=== PATIENT | male | born 2000 | race Two or more races ===

== ENCOUNTER 2023-04-19 13:46 | Emergency (ER) | payer OTHER ==
[2023-04-19 14:02] VITALS: TEMP 98.9; BMI 28.7
[2023-04-19] MEDS ORDERED: SODIUM CHLORIDE 0.9% 500 ML INFUS.BAG IV ONE (15:04)
[2023-04-19 15:49] VITALS: BP 112/64; PULSE 69; RESP 19
[2023-04-19 15:52] LABS: BASO % 0.5 % (0-2.0); EOS % 2.2 % (0-4.5); HEMATOCRIT 47.3 % (35.4-49); HEMOGLOBIN 15.4 GM/dL (11.7-16.9); LYMPH % 12.5 % (8-40); MCH 29.2 pg (25.7-33.7); MCHC 32.7 g/dl (32.0-35.9); MEAN CELL VOLUME 89.4 fl (80-96); MEAN PLT VOLUME 10.7 fl (7.5-11.1); MONO % 13.5 % (3.8-10.2); NEUT % 71.3 % (42.8-82.8); PLATELET COUNT 152 10^3/uL (134-434); RBC 5.29 M/mm3 (4.00-5.60); RDW 14.1 % (11.9-15.9); WHITE BLOOD COUNT 6.5 K/mm3 (4.0-10.0)
[2023-04-19 15:59] LABS: POTASSIUM 4.5 mmol/L (3.5-5.1)
[2023-04-19 16:02] LABS: ALBUMIN 4.1 g/dl (3.4-5.0); BLOOD UREA NITROGEN 13.6 mg/dL (7-18)
[2023-04-19 16:06] LABS: BILIRUBIN,TOTAL 0.4 mg/dL (0.2-1); TOT PROT 7.7 g/dl (6.4-8.2)
== END 2023-04-19 18:04 | disposition home or self-care (01) ==
LOC: JER 13:46
DX: R06.02 Shortness of breath (principal); R07.89 Other chest pain; R00.2 Palpitations; R20.2 Paresthesia of skin; R42 Dizziness and giddiness; R23.1 Pallor
CPT/HCPCS: 36415; 71046-TC-FY; 80053; 83735; 84439; 84443; 85025; 93005; 93010; 99285-25